=== PATIENT | male | born 1930 | race Caucasian/White ===

== ENCOUNTER 2019-04-30 17:57 | Emergency (ER) | payer OTHER, MEDICAID ==
[~2019-04-30] VITALS: Ht 165.1 cm; Wt 97.1 kg
[2019-04-30 18:10] VITALS: Ht 165.1 cm; Wt 97.1 kg
[2019-04-30 19:58] LABS: BASOPHIL % 0.4 % (0-2); PLATELET COUNT 177 x10^3mcL (130-400)
[2019-04-30 20:07] LABS: RED CELL DISTRIBUTION WIDTH 15.4 % (11.5-14.5)
[2019-04-30 20:13] LABS: CARBON DIOXIDE 31.3 mmol/L (21-32); CHLORIDE SERUM 109 mmol/L (98-107); GLUCOSE SERUM 117 mg/dL (74-106); POTASSIUM SERUM 4.9 mmol/L (3.5-5.1); SODIUM SERUM 144 mmol/L (136-145)
[2019-04-30 20:18] LABS: ALKALINE PHOSPHATASE 176 U/L (46-116); ALT/SGPT 35 U/L (16-63); AST/SGOT 34 U/L (15-37); TOTAL PROTEIN, SERUM 6.9 g/dL (6.4-8.2)
[2019-04-30 20:38] LABS: ALBUMIN 2.9 g/dL (3.4-5.0)
[2019-05-01 02:49] VITALS: BP 122/86
== END 2019-05-01 02:49 | disposition home or self-care (01) ==
LOC: ED 17:57
PROVIDERS: Emergency Medicine
DX: K08.9 Disorder of teeth and supporting structures, unspecified (principal); R79.1 Abnormal coagulation profile; Z79.01 Long term (current) use of anticoagulants
CPT/HCPCS: 36415